=== PATIENT | female | born 1935 ===

== ENCOUNTER 2020-01-30 18:15 | Inpatient (IN) | payer MEDICARE ==
[~2020-01-30] VITALS: Ht 142.2 cm; Wt 48.1 kg
[2020-01-30 18:40] VITALS: BP 115/61
[2020-01-30] MEDS ORDERED: ALBUTEROL SULFATE 2.5 MG/0.5 ML NEB SOLUTION NEB PRN (19:45)
[2020-01-30] MEDS ORDERED: ACETAMINOPHEN 650 MG/20.3 ML SOLUTION UDCUP JT PRN (20:00)
[2020-01-30] MEDS: DOCUSATE SODIUM 100 MG/10 ML LIQUID UDCUP JT SCH (20:17)
[2020-01-30 20:56] VITALS: BP 118/64
[2020-01-30] MEDS: METOPROLOL TARTRATE 50 MG TABLET JT SCH (21:06)
[2020-01-30] MEDS: ATORVASTATIN CALCIUM 40 MG TABLET JT SCH (21:06)
[2020-01-30] MEDS: QUEtiapine FUMARATE 25 MG TABLET JT SCH (21:06)
[2020-01-30] MEDS: FAMOTIDINE 20 MG/2.5 ML SUSPENSION ORAL.SYG JT SCH (21:07)
[2020-01-31] VITALS: BP 113/71
[2020-01-31] MEDS: DILTIAZEM HCL 60 MG TABLET JT SCH ×5 (00:09→23:13)
[2020-01-31 00:43] LABS: GLUCOMETER DEV NAME(LOC) 2WR.1C; GLUCOSE,POINT OF CARE 130 MG/DL (70-110)
[2020-01-31 03:53] LABS: GLUCOMETER DEV NAME(LOC) 2WR.2B; GLUCOSE,POINT OF CARE 113 MG/DL (70-110)
[2020-01-31 05:45] VITALS: BP 129/69
[2020-01-31 05:58] LABS: GLUCOMETER DEV NAME(LOC) 2WR.1C; GLUCOSE,POINT OF CARE 148 MG/DL (70-110)
[2020-01-31 08:11] LABS: BASOPHILS % (AUTO) 0.1 % (0.0-2.0); EOSINOPHILS % (AUTO) 0.6 % (1.0-6.0); HEMATOCRIT 39.3 % (36-46); HEMOGLOBIN 13.2 g/dL (12.0-16.0); LYMPHOCYTES # (AUTO) 1.7 K/uL (1.0-4.8); LYMPHOCYTES % (AUTO) 13.8 % (22.0-44.0); MEAN CORPUSCULAR HEMOGLOBIN 33.2 pg (26.0-34.0); MEAN CORPUSCULAR HGB CONC 33.7 G/dL (31.0-37.0); MEAN CORPUSCULAR VOLUME 99 fL (80-100); MONOCYTES # (AUTO) 0.9 K/uL (0.1-1.0); MONOCYTES % (AUTO) 7.6 % (2.0-9.0); NEUTROPHILS # (AUTO) 9.5 K/uL (1.8-7.7); NEUTROPHILS % (AUTO) 77.9 % (40.0-70.0); PLATELET COUNT (AUTO) 243 K/uL (150-450); RED BLOOD CELL COUNT(AUTO) 3.98 MIL/uL (4.00-5.20); RED CELL DISTRIBUTION WIDTH 15.2 % (11.5-14.5)
[2020-01-31 08:31] LABS: ALANINE AMINOTRANSFERASE 192 U/L (12-78); ALBUMIN 2.2 g/dL (3.4-5.0); ALKALINE PHOSPHATASE 122 U/L (46-116); ANION GAP 16 mmol/L (8-16); ASPARTATE AMINOTRANSFERASE 148 U/L (15-37); BILIRUBIN,TOTAL 0.9 mg/dL (0.1-1.0); CALCIUM, TOTAL 7.9 mg/dL (8.8-10.5); CARBON DIOXIDE 24 mmol/L (22-29); CHLORIDE 118 mmol/L (98-107); CREATININE 0.55 mg/dL (0.60-1.30); GLUCOSE,RANDOM 149 mg/dL (70-110); SODIUM SERUM 158 mmol/L (136-145); TOTAL PROTEIN, SERUM 6.2 g/dL (6.4-8.2); UREA NITROGEN, BLOOD 38 mg/dL (7-18)
[2020-01-31 08:34] LABS: GLOMERULAR FILTR. RATE CALC > 60 mL/min (>60)
[2020-01-31 09:30] VITALS: BP 108/75
[2020-01-31] MEDS: ASPIRIN 81 MG CHEWABLE TABLET JT SCH (09:37)
[2020-01-31] MEDS: FAMOTIDINE 20 MG/2.5 ML SUSPENSION ORAL.SYG JT SCH ×2 (09:37→22:00)
[2020-01-31] MEDS: CITALOPRAM HYDROBROMIDE 10 MG TABLET JT SCH (09:37)
[2020-01-31] MEDS: DOCUSATE SODIUM 100 MG/10 ML LIQUID UDCUP JT SCH ×2 (09:37→22:00)
[2020-01-31] MEDS: METOPROLOL TARTRATE 50 MG TABLET JT SCH ×3 (09:37→22:00)
[2020-01-31] MEDS ORDERED: DEXTROSE 50%-WATER 25 GM/50 ML SYRINGE IVP PRN (11:30)
[2020-01-31 12:07] LABS: GLUCOMETER DEV NAME(LOC) 2WR.2B; GLUCOSE,POINT OF CARE 143 MG/DL (70-110)
[2020-01-31] MEDS: SODIUM CHLORIDE 0.9% 1,000 ML IV SCH ×2 (13:29→23:13)
[2020-01-31 15:53] VITALS: BP 120/71
[2020-01-31 20:00] LABS: GLUCOMETER DEV NAME(LOC) 2WR.2B; GLUCOSE,POINT OF CARE 128 MG/DL (70-110)
[2020-01-31] MEDS: ATORVASTATIN CALCIUM 40 MG TABLET JT SCH (22:00)
[2020-01-31] MEDS: QUEtiapine FUMARATE 25 MG TABLET JT SCH (22:00)
[2020-01-31 23:23] VITALS: BP 106/58
[2020-02-01] MEDS: DILTIAZEM HCL 60 MG TABLET JT SCH ×3 (05:31→18:22)
[2020-02-01 05:48] LABS: GLUCOMETER DEV NAME(LOC) 2WR.2B; GLUCOSE,POINT OF CARE 112 MG/DL (70-110)
[2020-02-01 07:29] LABS: APPEARANCE,URINE CLOUDY (CLEAR); BILIRUBIN,URINE NEGATIVE (NEGATIVE); GLUCOSE, URINE (UA) NEGATIVE (NEGATIVE); KETONES,URINE NEGATIVE (NEGATIVE); LEUKOCYTE ESTERASE ,URINE LARGE (NEGATIVE); NITRATE,URINE POSITIVE (NEGATIVE); OCCULT BLOOD,URINE TRACE (NEGATIVE); PH,URINE 8.5 (5.0-8.0); PROTEIN,URINE SEE CONFIRM (NEGATIVE)
[2020-02-01 07:38] LABS: SULFOSALICYLIC ACID,URINE 3+ (Negative)
[2020-02-01 07:39] LABS: BACTERIA,URINE Many /HPF (None Seen); RBC,URINE 0-2 /HPF (0-2)
[2020-02-01 07:40] LABS: MUCUS,URINE Moderate LPF (None Seen)
[2020-02-01 07:56] VITALS: BP 112/68
[2020-02-01 08:07] LABS: ANION GAP 9 mmol/L (8-16); CALCIUM, TOTAL 7.8 mg/dL (8.8-10.5); CARBON DIOXIDE 22 mmol/L (22-29); CHLORIDE 120 mmol/L (98-107); CREATININE 0.67 mg/dL (0.60-1.30); GLUCOSE,RANDOM 132 mg/dL (70-110); SODIUM SERUM 151 mmol/L (136-145); UREA NITROGEN, BLOOD 36 mg/dL (7-18)
[2020-02-01 08:11] LABS: GLOMERULAR FILTR. RATE CALC > 60 mL/min (>60)
[2020-02-01] MEDS: DOCUSATE SODIUM 100 MG/10 ML LIQUID UDCUP JT SCH ×2 (09:00→21:00)
[2020-02-01] MEDS: CITALOPRAM HYDROBROMIDE 10 MG TABLET JT SCH (09:00)
[2020-02-01] MEDS: BISACODYL 10 MG RECTAL RECTAL SUPPOSITORY PR SCH (09:00)
[2020-02-01] MEDS: METOPROLOL TARTRATE 50 MG TABLET JT SCH ×3 (09:00→21:11)
[2020-02-01] MEDS: ASPIRIN 81 MG CHEWABLE TABLET JT SCH (09:00)
[2020-02-01] MEDS: FAMOTIDINE 20 MG/2.5 ML SUSPENSION ORAL.SYG JT SCH ×2 (09:00→21:10)
[2020-02-01 11:28] VITALS: BP 122/64
[2020-02-01] MEDS: NITROFURANTOIN/NITROFURAN MAC 100 MG CAPSULE [MACROBID] PO SCH ×2 (11:29→21:10)
[2020-02-01 11:51] LABS: GLUCOMETER DEV NAME(LOC) 2WR.1C; GLUCOSE,POINT OF CARE 125 MG/DL (70-110)
[2020-02-01] MEDS: INSULIN LISPRO 100 UNITS/ML SQ PRN (12:17)
[2020-02-01 12:46] LABS: GLUCOMETER DEV NAME(LOC) 2WR.2B; GLUCOSE,POINT OF CARE 104 MG/DL (70-110)
[2020-02-01] MEDS: CALCIUM CIT/VITAMIN D3 200 MG-250 UNITS TABLET JT SCH ×2 (15:27→21:10)
[2020-02-01 16:46] VITALS: BP 123/73
[2020-02-01 17:32] LABS: GLUCOMETER DEV NAME(LOC) 2WR.2B; GLUCOSE,POINT OF CARE 119 MG/DL (70-110)
[2020-02-01] MEDS: ATORVASTATIN CALCIUM 40 MG TABLET JT SCH (21:10)
[2020-02-01] MEDS: QUEtiapine FUMARATE 25 MG TABLET JT SCH (21:10)
[2020-02-01 23:02] VITALS: BP 111/73
[2020-02-02] MEDS: DILTIAZEM HCL 60 MG TABLET JT SCH ×5 (00:14→23:56)
[2020-02-02 05:25] LABS: GLUCOMETER DEV NAME(LOC) 2WR.1C; GLUCOSE,POINT OF CARE 113 MG/DL (70-110)
[2020-02-02 05:46] LABS: GLUCOMETER DEV NAME(LOC) 2WR.2B; GLUCOSE,POINT OF CARE 124 MG/DL (70-110)
[2020-02-02 06:32] LABS: ANION GAP 9 mmol/L (8-16); CARBON DIOXIDE 24 mmol/L (22-29); CHLORIDE 116 mmol/L (98-107); CREATININE 0.65 mg/dL (0.60-1.30); GLUCOSE,RANDOM 137 mg/dL (70-110); POTASSIUM 3.8 mmol/L (3.5-5.1); SODIUM SERUM 149 mmol/L (136-145); UREA NITROGEN, BLOOD 33 mg/dL (7-18)
[2020-02-02 06:33] LABS: GLOMERULAR FILTR. RATE CALC > 60 mL/min (>60)
[2020-02-02 07:01] VITALS: BP 119/87
[2020-02-02] MEDS: METOPROLOL TARTRATE 50 MG TABLET JT SCH ×3 (08:11→21:24)
[2020-02-02] MEDS: ASPIRIN 81 MG CHEWABLE TABLET JT SCH (08:11)
[2020-02-02] MEDS: CITALOPRAM HYDROBROMIDE 10 MG TABLET JT SCH (08:11)
[2020-02-02] MEDS: CALCIUM CIT/VITAMIN D3 200 MG-250 UNITS TABLET JT SCH ×3 (08:11→21:24)
[2020-02-02] MEDS: NITROFURANTOIN/NITROFURAN MAC 100 MG CAPSULE [MACROBID] PO SCH ×2 (08:11→21:24)
[2020-02-02] MEDS: DOCUSATE SODIUM 100 MG/10 ML LIQUID UDCUP JT SCH ×2 (08:11→21:23)
[2020-02-02] MEDS: FAMOTIDINE 20 MG/2.5 ML SUSPENSION ORAL.SYG JT SCH ×2 (08:11→21:23)
[2020-02-02] MEDS: BISACODYL 10 MG RECTAL RECTAL SUPPOSITORY PR SCH (09:00)
[2020-02-02 17:47] LABS: GLUCOMETER DEV NAME(LOC) 2WR.1C; GLUCOSE,POINT OF CARE 135 MG/DL (70-110)
[2020-02-02 18:38] VITALS: BP 107/58
[2020-02-02 20:36] LABS: GLUCOMETER DEV NAME(LOC) 2WR.2B; GLUCOSE,POINT OF CARE 124 MG/DL (70-110)
[2020-02-02] MEDS: QUEtiapine FUMARATE 25 MG TABLET JT SCH (21:24)
[2020-02-02] MEDS: ATORVASTATIN CALCIUM 40 MG TABLET JT SCH (21:24)
[2020-02-03 00:30] VITALS: BP 105/62
[2020-02-03] MEDS: DILTIAZEM HCL 60 MG TABLET JT SCH ×2 (00:44→05:46)
[2020-02-03 04:16] LABS: GLUCOMETER DEV NAME(LOC) 2WR.2B; GLUCOSE,POINT OF CARE 116 MG/DL (70-110)
[2020-02-03 05:30] VITALS: BP 115/68
[2020-02-03 06:10] LABS: GLUCOMETER DEV NAME(LOC) 2WR.2B; GLUCOSE,POINT OF CARE 124 MG/DL (70-110)
[2020-02-03 06:45] LABS: ALANINE AMINOTRANSFERASE 306 U/L (12-78); ALBUMIN 2.3 g/dL (3.4-5.0); ALKALINE PHOSPHATASE 189 U/L (46-116); ASPARTATE AMINOTRANSFERASE 209 U/L (15-37); CALCIUM, TOTAL 7.8 mg/dL (8.8-10.5); CARBON DIOXIDE 27 mmol/L (22-29); CREATININE 0.62 mg/dL (0.60-1.30); GLUCOSE,RANDOM 132 mg/dL (70-110); UREA NITROGEN, BLOOD 32 mg/dL (7-18)
[2020-02-03 06:54] LABS: ANION GAP 7 mmol/L (8-16); CHLORIDE 114 mmol/L (98-107); POTASSIUM 3.8 mmol/L (3.5-5.1); SODIUM SERUM 148 mmol/L (136-145)
[2020-02-03 07:24] LABS: GLOMERULAR FILTR. RATE CALC > 60 mL/min (>60)
[2020-02-03] MEDS: BISACODYL 10 MG RECTAL RECTAL SUPPOSITORY PR SCH (07:37)
[2020-02-03] MEDS: NITROFURANTOIN/NITROFURAN MAC 100 MG CAPSULE [MACROBID] PO SCH (07:45)
[2020-02-03] MEDS: ASPIRIN 81 MG CHEWABLE TABLET JT SCH (07:45)
[2020-02-03] MEDS: DOCUSATE SODIUM 100 MG/10 ML LIQUID UDCUP JT SCH ×2 (07:45→21:00)
[2020-02-03] MEDS: CALCIUM CIT/VITAMIN D3 200 MG-250 UNITS TABLET JT SCH ×3 (07:45→21:00)
[2020-02-03] MEDS: CITALOPRAM HYDROBROMIDE 10 MG TABLET JT SCH (07:45)
[2020-02-03] MEDS: METOPROLOL TARTRATE 50 MG TABLET JT SCH ×3 (07:46→21:00)
[2020-02-03] MEDS: FAMOTIDINE 20 MG/2.5 ML SUSPENSION ORAL.SYG JT SCH ×2 (07:46→21:00)
[2020-02-03 09:22] VITALS: BP 97/71
[2020-02-03 14:26] LABS: GLUCOMETER DEV NAME(LOC) 2WR.2B; GLUCOSE,POINT OF CARE 104 MG/DL (70-110)
[2020-02-03] MEDS: SODIUM CHLORIDE 0.9% 1,000 ML IV SCH (14:46)
[2020-02-03] MEDS: AMPICILLIN TRIHYDRATE 500 MG CAPSULE JT SCH ×2 (15:36→21:00)
[2020-02-03] MEDS: DILTIAZEM HCL 30 MG TABLET JT SCH ×2 (15:36→21:01)
[2020-02-03 21:00] VITALS: BP 109/62
[2020-02-03 21:32] LABS: GLUCOMETER DEV NAME(LOC) 2WR.2B; GLUCOSE,POINT OF CARE 108 MG/DL (70-110)
[2020-02-04 00:15] VITALS: BP 107/72
[2020-02-04 01:58] LABS: GLUCOMETER DEV NAME(LOC) 2WR.1C; GLUCOSE,POINT OF CARE 114 MG/DL (70-110)
[2020-02-04] MEDS: SODIUM CHLORIDE 0.9% 1,000 ML IV SCH (04:31)
[2020-02-04 06:15] LABS: GLUCOMETER DEV NAME(LOC) 2WR.2B; GLUCOSE,POINT OF CARE 116 MG/DL (70-110)
[2020-02-04] MEDS: DOCUSATE SODIUM 100 MG/10 ML LIQUID UDCUP JT SCH ×2 (07:02→21:00)
[2020-02-04] MEDS: BISACODYL 10 MG RECTAL RECTAL SUPPOSITORY PR SCH (07:02)
[2020-02-04 07:31] VITALS: BP 120/64
[2020-02-04] MEDS: METOPROLOL TARTRATE 50 MG TABLET JT SCH ×2 (07:32→21:02)
[2020-02-04] MEDS: DILTIAZEM HCL 30 MG TABLET JT SCH ×2 (07:32→21:02)
[2020-02-04] MEDS: AMPICILLIN TRIHYDRATE 500 MG CAPSULE JT SCH ×2 (07:32→21:01)
[2020-02-04] MEDS: CALCIUM CIT/VITAMIN D3 200 MG-250 UNITS TABLET JT SCH ×2 (07:32→21:02)
[2020-02-04] MEDS: ASPIRIN 81 MG CHEWABLE TABLET JT SCH (07:32)
[2020-02-04] MEDS: FAMOTIDINE 20 MG/2.5 ML SUSPENSION ORAL.SYG JT SCH ×2 (07:33→21:01)
[2020-02-04] MEDS: CITALOPRAM HYDROBROMIDE 10 MG TABLET JT SCH (07:33)
[2020-02-04 11:21] LABS: BASOPHILS % (AUTO) 0.2 % (0.0-2.0); EOSINOPHILS % (AUTO) 0.5 % (1.0-6.0); HEMATOCRIT 36.5 % (36-46); HEMOGLOBIN 11.9 g/dL (12.0-16.0); LYMPHOCYTES # (AUTO) 1.3 K/uL (1.0-4.8); LYMPHOCYTES % (AUTO) 10.6 % (22.0-44.0); MEAN CORPUSCULAR HEMOGLOBIN 32.7 pg (26.0-34.0); MEAN CORPUSCULAR HGB CONC 32.7 G/dL (31.0-37.0); MEAN CORPUSCULAR VOLUME 100 fL (80-100); MONOCYTES # (AUTO) 0.8 K/uL (0.1-1.0); MONOCYTES % (AUTO) 6.6 % (2.0-9.0); NEUTROPHILS # (AUTO) 10.1 K/uL (1.8-7.7); NEUTROPHILS % (AUTO) 82.1 % (40.0-70.0); PLATELET COUNT (AUTO) 193 K/uL (150-450); RED BLOOD CELL COUNT(AUTO) 3.65 MIL/uL (4.00-5.20); RED CELL DISTRIBUTION WIDTH 15.4 % (11.5-14.5)
[2020-02-04 11:31] LABS: ANION GAP 7 mmol/L (8-16); CALCIUM, TOTAL 7.8 mg/dL (8.8-10.5); CARBON DIOXIDE 24 mmol/L (22-29); CHLORIDE 115 mmol/L (98-107); CREATININE 0.53 mg/dL (0.60-1.30); GLUCOSE,RANDOM 122 mg/dL (70-110); POTASSIUM 3.8 mmol/L (3.5-5.1); SODIUM SERUM 146 mmol/L (136-145); UREA NITROGEN, BLOOD 33 mg/dL (7-18)
[2020-02-04 11:39] LABS: GLOMERULAR FILTR. RATE CALC > 60 mL/min (>60)
[2020-02-04 15:51] LABS: GLUCOMETER DEV NAME(LOC) 2WR.1C; GLUCOSE,POINT OF CARE 109 MG/DL (70-110)
[2020-02-04 16:38] VITALS: BP 124/64
[2020-02-04 21:00] VITALS: BP 124/63
[2020-02-04] MEDS: MELATONIN 5 MG TABLET PO SCH (21:02)
[2020-02-04 21:20] LABS: GLUCOMETER DEV NAME(LOC) 2WR.2B; GLUCOSE,POINT OF CARE 99 MG/DL (70-110)
[2020-02-04 21:45] LABS: GLUCOMETER DEV NAME(LOC) 2WR.1C; GLUCOSE,POINT OF CARE 106 MG/DL (70-110)
[2020-02-04 23:14] VITALS: BP 112/60
[2020-02-05 05:54] LABS: GLUCOMETER DEV NAME(LOC) 2WR.1C; GLUCOSE,POINT OF CARE 117 MG/DL (70-110)
[2020-02-05 06:38] LABS: ANION GAP 8 mmol/L (8-16); CALCIUM, TOTAL 7.5 mg/dL (8.8-10.5); CARBON DIOXIDE 26 mmol/L (22-29); CHLORIDE 111 mmol/L (98-107); CREATININE 0.63 mg/dL (0.60-1.30); GLUCOSE,RANDOM 119 mg/dL (70-110); POTASSIUM 3.7 mmol/L (3.5-5.1); SODIUM SERUM 145 mmol/L (136-145); UREA NITROGEN, BLOOD 26 mg/dL (7-18)
[2020-02-05 06:51] LABS: GLOMERULAR FILTR. RATE CALC > 60 mL/min (>60)
[2020-02-05 09:00] VITALS: BP 133/78
[2020-02-05] MEDS: BISACODYL 10 MG RECTAL RECTAL SUPPOSITORY PR SCH (09:00)
[2020-02-05] MEDS: FAMOTIDINE 20 MG/2.5 ML SUSPENSION ORAL.SYG JT SCH ×2 (09:01→21:17)
[2020-02-05] MEDS: DILTIAZEM HCL 30 MG TABLET JT SCH ×3 (09:02→21:16)
[2020-02-05] MEDS: CALCIUM CIT/VITAMIN D3 200 MG-250 UNITS TABLET JT SCH ×3 (09:02→21:16)
[2020-02-05] MEDS: CITALOPRAM HYDROBROMIDE 10 MG TABLET JT SCH (09:02)
[2020-02-05] MEDS: METOPROLOL TARTRATE 50 MG TABLET JT SCH ×3 (09:02→21:00)
[2020-02-05] MEDS: AMPICILLIN TRIHYDRATE 500 MG CAPSULE JT SCH ×3 (09:02→21:16)
[2020-02-05] MEDS: ASPIRIN 81 MG CHEWABLE TABLET JT SCH (09:03)
[2020-02-05] MEDS: DOCUSATE SODIUM 100 MG/10 ML LIQUID UDCUP JT SCH ×2 (09:04→21:00)
[2020-02-05] MEDS ORDERED: FUROSEMIDE 40 MG TABLET PO ONE (11:00)
[2020-02-05 13:30] LABS: GLUCOMETER DEV NAME(LOC) 2WR.1C; GLUCOSE,POINT OF CARE 137 MG/DL (70-110)
[2020-02-05 16:00] VITALS: BP 123/78
[2020-02-05 17:35] LABS: GLUCOMETER DEV NAME(LOC) 2WR.2B; GLUCOSE,POINT OF CARE 113 MG/DL (70-110)
[2020-02-05 21:00] VITALS: BP 96/70
[2020-02-05] MEDS: MELATONIN 5 MG TABLET PO SCH (21:16)
[2020-02-05 21:50] LABS: GLUCOMETER DEV NAME(LOC) 2WR.2B; GLUCOSE,POINT OF CARE 119 MG/DL (70-110)
[2020-02-05 22:30] VITALS: BP 104/60
[2020-02-06 02:00] VITALS: BP 107/77
[2020-02-06 06:37] LABS: GLUCOMETER DEV NAME(LOC) 2WR.2B; GLUCOSE,POINT OF CARE 119 MG/DL (70-110)
[2020-02-06 07:49] LABS: ALANINE AMINOTRANSFERASE 245 U/L (12-78); ALBUMIN 2.2 g/dL (3.4-5.0); ALKALINE PHOSPHATASE 187 U/L (46-116); ANION GAP 7 mmol/L (8-16); ASPARTATE AMINOTRANSFERASE 176 U/L (15-37); CALCIUM, TOTAL 8.3 mg/dL (8.8-10.5); CARBON DIOXIDE 27 mmol/L (22-29); CHLORIDE 110 mmol/L (98-107); CREATININE 0.56 mg/dL (0.60-1.30); GLUCOSE,RANDOM 119 mg/dL (70-110); POTASSIUM 3.6 mmol/L (3.5-5.1); SODIUM SERUM 144 mmol/L (136-145); TOTAL PROTEIN, SERUM 6.1 g/dL (6.4-8.2); UREA NITROGEN, BLOOD 24 mg/dL (7-18)
[2020-02-06 07:50] LABS: GLOMERULAR FILTR. RATE CALC > 60 mL/min (>60)
[2020-02-06 08:00] VITALS: BP 112/84
[2020-02-06] MEDS: CALCIUM CIT/VITAMIN D3 200 MG-250 UNITS TABLET JT SCH ×3 (08:02→20:34)
[2020-02-06] MEDS: ASPIRIN 81 MG CHEWABLE TABLET JT SCH (08:02)
[2020-02-06] MEDS: DILTIAZEM HCL 30 MG TABLET JT SCH ×3 (08:02→20:34)
[2020-02-06] MEDS: METOPROLOL TARTRATE 50 MG TABLET JT SCH ×3 (08:04→20:34)
[2020-02-06] MEDS: AMPICILLIN TRIHYDRATE 500 MG CAPSULE JT SCH ×3 (08:04→20:34)
[2020-02-06] MEDS: FAMOTIDINE 20 MG/2.5 ML SUSPENSION ORAL.SYG JT SCH ×2 (08:05→20:35)
[2020-02-06] MEDS: DOCUSATE SODIUM 100 MG/10 ML LIQUID UDCUP JT SCH ×2 (08:06→20:34)
[2020-02-06] MEDS: CITALOPRAM HYDROBROMIDE 10 MG TABLET JT SCH (08:06)
[2020-02-06] MEDS: BISACODYL 10 MG RECTAL RECTAL SUPPOSITORY PR SCH (08:14)
[2020-02-06] MEDS ORDERED: FUROSEMIDE 40 MG/4 ML VIAL IVP ONE (09:00)
[2020-02-06] MEDS ORDERED: POTASSIUM CHLORIDE 10% 40 MEQ/30 ML LIQUID UDCUP JT ONE (09:00)
[2020-02-06] MEDS ORDERED: FUROSEMIDE 40 MG TABLET JT ONE (09:00)
[2020-02-06 14:33] LABS: GLUCOMETER DEV NAME(LOC) 2WR.1C; GLUCOSE,POINT OF CARE 101 MG/DL (70-110)
[2020-02-06] MEDS: APIXABAN 2.5 MG TABLET PO SCH ×2 (14:58→20:34)
[2020-02-06 17:17] VITALS: BP 109/66
[2020-02-06] MEDS: MELATONIN 5 MG TABLET PO SCH (20:34)
[2020-02-06 21:31] LABS: GLUCOMETER DEV NAME(LOC) 2WR.2B; GLUCOSE,POINT OF CARE 112 MG/DL (70-110)
[2020-02-07 05:00] VITALS: BP 135/78
[2020-02-07 06:15] LABS: GLUCOMETER DEV NAME(LOC) 2WR.2B; GLUCOSE,POINT OF CARE 108 MG/DL (70-110)
[2020-02-07 08:00] VITALS: BP 106/67
[2020-02-07] MEDS: ASPIRIN 81 MG CHEWABLE TABLET JT SCH (08:51)
[2020-02-07] MEDS: APIXABAN 2.5 MG TABLET PO SCH ×2 (08:51→20:20)
[2020-02-07] MEDS: CALCIUM CIT/VITAMIN D3 200 MG-250 UNITS TABLET JT SCH ×3 (08:51→20:22)
[2020-02-07] MEDS: METOPROLOL TARTRATE 50 MG TABLET JT SCH ×3 (08:52→20:17)
[2020-02-07] MEDS: DOCUSATE SODIUM 100 MG/10 ML LIQUID UDCUP JT SCH ×2 (08:53→20:22)
[2020-02-07] MEDS: AMPICILLIN TRIHYDRATE 500 MG CAPSULE JT SCH ×3 (08:53→20:21)
[2020-02-07] MEDS: DILTIAZEM HCL 30 MG TABLET JT SCH ×3 (08:54→20:42)
[2020-02-07] MEDS: CITALOPRAM HYDROBROMIDE 10 MG TABLET JT SCH (08:55)
[2020-02-07] MEDS: FAMOTIDINE 20 MG/2.5 ML SUSPENSION ORAL.SYG JT SCH ×2 (08:55→20:18)
[2020-02-07] MEDS: BISACODYL 10 MG RECTAL RECTAL SUPPOSITORY PR SCH (08:56)
[2020-02-07] MEDS: INSULIN LISPRO 100 UNITS/ML SQ PRN (12:57)
[2020-02-07 13:17] LABS: GLUCOMETER DEV NAME(LOC) 2WR.2B; GLUCOSE,POINT OF CARE 245 MG/DL (70-110)
[2020-02-07 15:44] VITALS: BP 91/64
[2020-02-07 17:58] LABS: GLUCOMETER DEV NAME(LOC) 2WR.2B; GLUCOSE,POINT OF CARE 77 MG/DL (70-110)
[2020-02-07 20:15] VITALS: BP 97/67
[2020-02-07] MEDS: MELATONIN 5 MG TABLET PO SCH (20:34)
[2020-02-07 20:50] LABS: GLUCOMETER DEV NAME(LOC) 2WR.2B; GLUCOSE,POINT OF CARE 127 MG/DL (70-110)
[2020-02-07 23:24] VITALS: BP 104/56
[2020-02-08 06:06] LABS: BASOPHILS % (AUTO) 0.5 % (0.0-2.0); EOSINOPHILS % (AUTO) 0.9 % (1.0-6.0); HEMATOCRIT 37.2 % (36-46); HEMOGLOBIN 12.8 g/dL (12.0-16.0); LYMPHOCYTES # (AUTO) 1.8 K/uL (1.0-4.8); LYMPHOCYTES % (AUTO) 23.5 % (22.0-44.0); MEAN CORPUSCULAR HEMOGLOBIN 33.9 pg (26.0-34.0); MEAN CORPUSCULAR HGB CONC 34.3 G/dL (31.0-37.0); MEAN CORPUSCULAR VOLUME 99 fL (80-100); MONOCYTES # (AUTO) 0.6 K/uL (0.1-1.0); MONOCYTES % (AUTO) 8.3 % (2.0-9.0); NEUTROPHILS # (AUTO) 5.2 K/uL (1.8-7.7); NEUTROPHILS % (AUTO) 66.8 % (40.0-70.0); PLATELET COUNT (AUTO) 179 K/uL (150-450); RED BLOOD CELL COUNT(AUTO) 3.76 MIL/uL (4.00-5.20); RED CELL DISTRIBUTION WIDTH 15.7 % (11.5-14.5)
[2020-02-08 06:35] LABS: GLUCOMETER DEV NAME(LOC) 2WR.2B; GLUCOSE,POINT OF CARE 102 MG/DL (70-110)
[2020-02-08 06:49] LABS: ALANINE AMINOTRANSFERASE 193 U/L (12-78); ALBUMIN 2.1 g/dL (3.4-5.0); ALKALINE PHOSPHATASE 163 U/L (46-116); ANION GAP 6 mmol/L (8-16); ASPARTATE AMINOTRANSFERASE 108 U/L (15-37); BILIRUBIN,TOTAL 0.8 mg/dL (0.1-1.0); CALCIUM, TOTAL 8.1 mg/dL (8.8-10.5); CARBON DIOXIDE 28 mmol/L (22-29); CHLORIDE 106 mmol/L (98-107); CREATININE 0.66 mg/dL (0.60-1.30); GLOMERULAR FILTR. RATE CALC > 60 mL/min (>60); GLUCOSE,RANDOM 116 mg/dL (70-110); POTASSIUM 4.2 mmol/L (3.5-5.1); SODIUM SERUM 140 mmol/L (136-145); TOTAL PROTEIN, SERUM 5.8 g/dL (6.4-8.2); UREA NITROGEN, BLOOD 22 mg/dL (7-18)
[2020-02-08 07:47] VITALS: BP 103/59
[2020-02-08] MEDS: BISACODYL 10 MG RECTAL RECTAL SUPPOSITORY PR SCH (09:00)
[2020-02-08] MEDS: CALCIUM CIT/VITAMIN D3 200 MG-250 UNITS TABLET JT SCH ×3 (09:01→20:30)
[2020-02-08] MEDS: APIXABAN 2.5 MG TABLET PO SCH ×2 (09:01→20:33)
[2020-02-08] MEDS: ASPIRIN 81 MG CHEWABLE TABLET JT SCH (09:02)
[2020-02-08] MEDS: AMPICILLIN TRIHYDRATE 500 MG CAPSULE JT SCH ×3 (09:04→20:30)
[2020-02-08] MEDS: FAMOTIDINE 20 MG/2.5 ML SUSPENSION ORAL.SYG JT SCH ×2 (09:04→20:30)
[2020-02-08] MEDS: CITALOPRAM HYDROBROMIDE 10 MG TABLET JT SCH (09:04)
[2020-02-08] MEDS: DILTIAZEM HCL 30 MG TABLET JT SCH ×3 (09:04→20:30)
[2020-02-08] MEDS: METOPROLOL TARTRATE 50 MG TABLET JT SCH ×3 (09:04→20:31)
[2020-02-08] MEDS: DOCUSATE SODIUM 100 MG/10 ML LIQUID UDCUP JT SCH ×2 (09:05→20:31)
[2020-02-08 09:11] VITALS: BP 113/60
[2020-02-08 12:27] LABS: GLUCOMETER DEV NAME(LOC) 2WR.2B; GLUCOSE,POINT OF CARE 107 MG/DL (70-110)
[2020-02-08 15:55] VITALS: BP 98/65
[2020-02-08 18:52] LABS: GLUCOMETER DEV NAME(LOC) 2WR.2B; GLUCOSE,POINT OF CARE 82 MG/DL (70-110)
[2020-02-08 20:28] VITALS: BP 96/63
[2020-02-08] MEDS: MELATONIN 5 MG TABLET PO SCH (20:33)
[2020-02-08 21:27] LABS: GLUCOMETER DEV NAME(LOC) 2WR.2B; GLUCOSE,POINT OF CARE 103 MG/DL (70-110)
[2020-02-09 04:11] VITALS: BP 105/71
[2020-02-09 05:59] LABS: GLUCOMETER DEV NAME(LOC) 2WR.2B; GLUCOSE,POINT OF CARE 103 MG/DL (70-110)
[2020-02-09 07:06] VITALS: BP 114/62
[2020-02-09] MEDS: ASPIRIN 81 MG CHEWABLE TABLET JT SCH (07:53)
[2020-02-09] MEDS: DOCUSATE SODIUM 100 MG/10 ML LIQUID UDCUP JT SCH ×2 (08:41→20:17)
[2020-02-09] MEDS: APIXABAN 2.5 MG TABLET PO SCH ×2 (08:41→20:17)
[2020-02-09] MEDS: CITALOPRAM HYDROBROMIDE 10 MG TABLET JT SCH (08:41)
[2020-02-09] MEDS: BISACODYL 10 MG RECTAL RECTAL SUPPOSITORY PR SCH (08:41)
[2020-02-09] MEDS: CALCIUM CIT/VITAMIN D3 200 MG-250 UNITS TABLET JT SCH ×3 (08:41→20:17)
[2020-02-09] MEDS: METOPROLOL TARTRATE 50 MG TABLET JT SCH ×3 (08:41→20:17)
[2020-02-09] MEDS: FAMOTIDINE 20 MG/2.5 ML SUSPENSION ORAL.SYG JT SCH ×2 (08:41→20:17)
[2020-02-09] MEDS: DILTIAZEM HCL 30 MG TABLET JT SCH ×3 (08:41→20:17)
[2020-02-09] MEDS: AMPICILLIN TRIHYDRATE 500 MG CAPSULE JT SCH ×3 (08:41→20:17)
[2020-02-09 09:56] LABS: GLUCOMETER DEV NAME(LOC) 2WR.1C; GLUCOSE,POINT OF CARE 81 MG/DL (70-110)
[2020-02-09 15:10] VITALS: BP 107/59
[2020-02-09 15:18] LABS: GLUCOMETER DEV NAME(LOC) 2WR.1C; GLUCOSE,POINT OF CARE 83 MG/DL (70-110)
[2020-02-09 18:11] LABS: GLUCOMETER DEV NAME(LOC) 2WR.1C; GLUCOSE,POINT OF CARE 85 MG/DL (70-110)
[2020-02-09 20:15] VITALS: BP 89/60
[2020-02-09] MEDS: MELATONIN 5 MG TABLET PO SCH (20:17)
[2020-02-09 22:14] LABS: GLUCOMETER DEV NAME(LOC) 2WR.2B; GLUCOSE,POINT OF CARE 114 MG/DL (70-110)
[2020-02-09 23:32] VITALS: BP 96/59
[2020-02-10] MEDS ORDERED: ASPI-728 PO (00:58)
[2020-02-10] MEDS ORDERED: MELA5TAB3 PO (00:58)
[2020-02-10] MEDS ORDERED: AMPI500C68 PO (00:58)
[2020-02-10] MEDS ORDERED: DILT30 PO (00:58)
[2020-02-10] MEDS ORDERED: METO50 PO (00:58)
[2020-02-10] MEDS ORDERED: FAMO20 PO (00:58)
[2020-02-10] MEDS ORDERED: APIX2.5T PO (00:58)
[2020-02-10] MEDS ORDERED: CALC-840 PO (00:58)
[2020-02-10] MEDS ORDERED: DOCU-275 PO (00:58)
[2020-02-10] MEDS ORDERED: CITA10TA99 PO (00:58)
[2020-02-10 05:42] LABS: GLUCOMETER DEV NAME(LOC) 2WR.2B; GLUCOSE,POINT OF CARE 102 MG/DL (70-110)
[2020-02-10 07:58] VITALS: BP 106/66
[2020-02-10] MEDS: AMPICILLIN TRIHYDRATE 500 MG CAPSULE JT SCH ×3 (07:58→20:16)
[2020-02-10] MEDS: DILTIAZEM HCL 30 MG TABLET JT SCH ×3 (07:58→20:18)
[2020-02-10] MEDS: FAMOTIDINE 20 MG/2.5 ML SUSPENSION ORAL.SYG JT SCH ×2 (07:58→20:18)
[2020-02-10] MEDS: DOCUSATE SODIUM 100 MG/10 ML LIQUID UDCUP JT SCH ×2 (07:59→20:16)
[2020-02-10] MEDS: CITALOPRAM HYDROBROMIDE 10 MG TABLET JT SCH (07:59)
[2020-02-10] MEDS: METOPROLOL TARTRATE 50 MG TABLET JT SCH ×3 (07:59→20:19)
[2020-02-10] MEDS: ASPIRIN 81 MG CHEWABLE TABLET JT SCH (07:59)
[2020-02-10] MEDS: CALCIUM CIT/VITAMIN D3 200 MG-250 UNITS TABLET JT SCH ×3 (07:59→20:16)
[2020-02-10] MEDS: APIXABAN 2.5 MG TABLET PO SCH ×2 (07:59→20:16)
[2020-02-10] MEDS: BISACODYL 10 MG RECTAL RECTAL SUPPOSITORY PR SCH (08:01)
[2020-02-10 13:32] LABS: GLUCOMETER DEV NAME(LOC) 2WR.2B; GLUCOSE,POINT OF CARE 78 MG/DL (70-110)
[2020-02-10 15:58] VITALS: BP 97/44
[2020-02-10 17:57] LABS: GLUCOMETER DEV NAME(LOC) 2WR.2B; GLUCOSE,POINT OF CARE 88 MG/DL (70-110)
[2020-02-10 20:09] VITALS: BP 94/56
[2020-02-10] MEDS: MELATONIN 5 MG TABLET PO SCH (20:16)
[2020-02-10 21:42] LABS: GLUCOMETER DEV NAME(LOC) 2WR.1C; GLUCOSE,POINT OF CARE 100 MG/DL (70-110)
[2020-02-10 23:47] VITALS: BP 102/63
[2020-02-11] MEDS: BISACODYL 10 MG RECTAL RECTAL SUPPOSITORY PR SCH (09:00)
[2020-02-11 09:10] VITALS: BP 115/52
[2020-02-11] MEDS: DILTIAZEM HCL 30 MG TABLET JT SCH (09:13)
[2020-02-11] MEDS: FAMOTIDINE 20 MG/2.5 ML SUSPENSION ORAL.SYG JT SCH (09:13)
[2020-02-11] MEDS: APIXABAN 2.5 MG TABLET PO SCH (09:13)
[2020-02-11] MEDS: CALCIUM CIT/VITAMIN D3 200 MG-250 UNITS TABLET JT SCH (09:13)
[2020-02-11] MEDS: AMPICILLIN TRIHYDRATE 500 MG CAPSULE JT SCH (09:13)
[2020-02-11] MEDS: CITALOPRAM HYDROBROMIDE 10 MG TABLET JT SCH (09:13)
[2020-02-11] MEDS: DOCUSATE SODIUM 100 MG/10 ML LIQUID UDCUP JT SCH (09:13)
[2020-02-11] MEDS: METOPROLOL TARTRATE 50 MG TABLET JT SCH (09:14)
[2020-02-11] MEDS: ASPIRIN 81 MG CHEWABLE TABLET JT SCH (09:14)
[2020-02-11 12:13] LABS: GLUCOMETER DEV NAME(LOC) 2WR.1C; GLUCOSE,POINT OF CARE 94 MG/DL (70-110)
[2020-02-11 12:59] LABS: GLUCOMETER DEV NAME(LOC) 2WR.1C; GLUCOSE,POINT OF CARE 72 MG/DL (70-110)
== END 2020-02-11 13:45 | disposition home or self-care (01) | DRG 56 ==
LOC: 2WR 18:15 → B3A 02-04 15:40 → 2WR 02-04 15:41
PROVIDERS: ADMIT Physical Medicine & Rehabilitation; ATTEND Physical Medicine & Rehabilitation
DX: I69.351 Hemiplegia and hemiparesis following cerebral infarction affecting right dominant side (principal); I63.512 Cerebral infarction due to unspecified occlusion or stenosis of left middle cerebral artery; E43 Unspecified severe protein-calorie malnutrition; I50.32 Chronic diastolic (congestive) heart failure; I48.20 Chronic atrial fibrillation, unspecified; N39.0 Urinary tract infection, site not specified; R47.01 Aphasia; R13.10 Dysphagia, unspecified; E78.5 Hyperlipidemia, unspecified; F32.9 Major depressive disorder, single episode, unspecified; I11.0 Hypertensive heart disease with heart failure; E86.0 Dehydration; E83.51 Hypocalcemia; R74.01 Elevation of levels of liver transaminase levels; B96.4 Proteus (mirabilis) (morganii) as the cause of diseases classified elsewhere; R32 Unspecified urinary incontinence; I95.9 Hypotension, unspecified; Z79.899 Other long term (current) drug therapy; Z68.23 Body mass index [BMI] 23.0-23.9, adult; Z88.7 Allergy status to serum and vaccine
CPT/HCPCS: 70450; 74230; 76000; 76700; 80074; 83735; 87081; 87086; 92507; 92523; 92526; 92611; 93005; 93970; 97112; 97116; 97163; 97167; 97530; 97535; 99366; 99368; J1940; J7030; 36415-L1; 36415-TC; 71045-TC